=== PATIENT | female | born 1980 | race Asian ===

== ENCOUNTER 2016-12-23 00:10 | Inpatient (IN) | payer OTHER ==
[2016-12-23] MEDS ORDERED: Penicillin G Potassium IV* 5 MILLION.UNITS VIAL ONE (00:49)
[2016-12-23 01:11] LABS: Hematocrit 36 % (35-47); Mean Corpuscular HGB Conc 33 g/dl (31-36); Mean Corpuscular Hemoglobin 31 pg (27-31); Mean Corpuscular Volume 92 fL (80-97); Mean Platelet Volume 10 um3 (7.4-10.4); Red Blood Count 3.91 10^6/ul (4.0-5.4); Red Cell Distribution Width 14 % (10.5-15); White Blood Count 7.8 10^3/ul (3.5-10.8)
[2016-12-23] MEDS ORDERED: fentaNYL* 50 MCG/ML 2 ML VIAL (100 MCG VIAL) ONE (01:36)
[2016-12-23] MEDS ORDERED: Naloxone* 0.4 MG/ML 1 ML VIAL IV PRN (01:55)
[2016-12-23] MEDS ORDERED: Phenylephrine IV* 40 MCG/ML 10 ML SYRINGE IV PUSH PRN (01:59)
[2016-12-23] MEDS ORDERED: Sodium Citrate/Citric Acid* 15 ML UDC PO PRN (01:59)
[2016-12-23] MEDS ORDERED: Famotidine TAB* 20 MG PO PRN (01:59)
[2016-12-23] MEDS ORDERED: Mineral Oil Sterile, TOPICAL* 25 ML BTL ONE (03:27)
[2016-12-23] MEDS ORDERED: Witch Hazel PAD* JAR TOPICAL PRN (04:03)
[2016-12-23] MEDS ORDERED: Ibuprofen TAB* 600 MG PO PRN (04:03)
[2016-12-23] MEDS ORDERED: Dibucaine 1% 28.35 GM TUBE PR PRN (04:03)
[2016-12-23] MEDS ORDERED: Acetaminophen TAB* 325 MG PO PRN (04:03)
[2016-12-23] MEDS: Docusate CAP* 100 MG PO SCH ×3 (14:35→20:24)
[2016-12-24 07:50] LABS: Hematocrit 36 % (35-47); Hemoglobin 12.1 g/dl (12.0-16.0); Mean Corpuscular HGB Conc 33 g/dl (31-36); Mean Corpuscular Hemoglobin 31 pg (27-31); Mean Corpuscular Volume 93 fL (80-97); Mean Platelet Volume 9 um3 (7.4-10.4); Red Blood Count 3.89 10^6/ul (4.0-5.4); Red Cell Distribution Width 14 % (10.5-15); White Blood Count 8.7 10^3/ul (3.5-10.8)
[2016-12-24] MEDS ORDERED: Ferrous Gluconate TAB* 324 MG TAB PO SCH (09:00)
[2016-12-24] MEDS: Docusate CAP* 100 MG PO SCH (19:44)
[2016-12-25 08:49] VITALS: BP 98/59
[2016-12-25] MEDS: Docusate CAP* 100 MG PO SCH ×2 (09:22→09:23)
== END 2016-12-25 12:39 | disposition home or self-care (01) | DRG 775 ==
LOC: MCHOBOUT 00:10 → MCHOB 00:38
PROVIDERS: ADMIT Nurse Practitioner; ATTEND Midwife
PROC: 0KQM0ZZ Repair Perineum Muscle, Open Approach (ICD-10-PCS; principal; 2016-12-23)
PROC: 10E0XZZ Delivery of Products of Conception, External Approach (ICD-10-PCS; 2016-12-23)
PROC: 4A1HXCZ Monitoring of Products of Conception, Cardiac Rate, External Approach (ICD-10-PCS; 2016-12-23)
PROC: 10907ZC Drainage of Amniotic Fluid, Therapeutic from Products of Conception, Via Natural or Artificial Opening (ICD-10-PCS; 2016-12-23)
DX: O99.824 Streptococcus B carrier state complicating childbirth (principal); O09.523 Supervision of elderly multigravida, third trimester; O69.81X0 Labor and delivery complicated by cord around neck, without compression, not applicable or unspecified; O70.1 Second degree perineal laceration during delivery; Z37.0 Single live birth; Z3A.38 38 weeks gestation of pregnancy
CPT/HCPCS: 36415; 85025; 86850; 86900; 86901; A9270-GY; J2540; J3010